=== PATIENT | male | born 1990 | race Caucasian/White ===

== ENCOUNTER 2016-11-27 02:31 | Emergency (ER) | payer BC | END 2016-11-27 05:45 | disposition left against medical advice (07) | LOC: ER1 02:31 | DX: Z53.21 Procedure and treatment not carried out due to patient leaving prior to being seen by health care provider (principal) ==

== ENCOUNTER 2016-11-27 13:45 | Emergency (ER) | payer BC | END 2016-11-27 22:20 | disposition left against medical advice (07) | LOC: ER1 13:45 | DX: Z53.21 Procedure and treatment not carried out due to patient leaving prior to being seen by health care provider (principal) ==